=== PATIENT | female | born 1985 | race Caucasian/White ===

== ENCOUNTER 2019-11-02 08:49 | Emergency (ER) | payer OTHER ==
[~2019-11-02] VITALS: Ht 165.1 cm; Wt 86.2 kg
[~2019-11-02 08:49] MED LIST: AMOX500 PO; CEPH500 PO; CETI10 PO; CIPR500 PO; CLIN300 PO; CYCL10 PO; Cleocin HCl300 MG PO; DIAZ10 PO; DIPH50 PO; FAMO20 PO; Flexeril 10 mg10 MG PO; HYDACE10B PO; HYDACE5 PO; HYDACE5325 PO; LAMO25; LORA1 PO; LORA2 PO; METPRE4DP PO; Norco 5-325 Ta1 EACH PO; OXYACE5T PO; PENVK250 PO; PENVK500; PENVK500 PO; PRED20 PO; PROM25 PO; QUET25; RANI150 PO; RXCLIN PO; RXHYDACE PO; RXOXYACE PO; RXPROM25 PO; RXTRAM50 PO; TRAM50 PO; Valium5 MG PO
[2019-11-02] MEDS ORDERED: METH10 PO (09:23)
[2019-11-02] MEDS ORDERED: Cleocin HCl300 MG PO (10:08)
== END 2019-11-02 10:15 | disposition home or self-care (01) ==
LOC: ER 08:49
DX: K02.9 Dental caries, unspecified (principal); Z88.0 Allergy status to penicillin; Z88.6 Allergy status to analgesic agent; Z88.5 Allergy status to narcotic agent; Z88.8 Allergy status to other drugs, medicaments and biological substances; Z91.010 Allergy to peanuts; Z91.018 Allergy to other foods; Z79.899 Other long term (current) drug therapy; F41.9 Anxiety disorder, unspecified; F17.210 Nicotine dependence, cigarettes, uncomplicated
CPT/HCPCS: 99282

== ENCOUNTER 2020-08-24 13:37 | Emergency (ER) | payer OTHER ==
[~2020-08-24] VITALS: Ht 167.6 cm; Wt 83.9 kg
[~2020-08-24 13:37] MED LIST changes: +METH10 PO
[2020-08-24] MEDS ORDERED: Cleocin HCl300 MG PO (14:55)
== END 2020-08-24 15:04 | disposition home or self-care (01) ==
LOC: ER 13:37
DX: K04.7 Periapical abscess without sinus (principal); F17.200 Nicotine dependence, unspecified, uncomplicated; Z88.6 Allergy status to analgesic agent; Z88.5 Allergy status to narcotic agent; Z88.0 Allergy status to penicillin; Z79.891 Long term (current) use of opiate analgesic; Z91.010 Allergy to peanuts; Z91.018 Allergy to other foods; Z87.442 Personal history of urinary calculi
CPT/HCPCS: 99283

== ENCOUNTER 2020-12-16 10:24 | Emergency (ER) | payer OTHER ==
[~2020-12-16] VITALS: Ht 165.1 cm; Wt 81.7 kg
[2020-12-16] MEDS ORDERED: CLIN300 PO (10:36)
== END 2020-12-16 10:40 | disposition home or self-care (01) ==
LOC: ER 10:24
DX: K08.89 Other specified disorders of teeth and supporting structures (principal); F17.200 Nicotine dependence, unspecified, uncomplicated; Z88.6 Allergy status to analgesic agent; Z88.8 Allergy status to other drugs, medicaments and biological substances; Z88.0 Allergy status to penicillin
CPT/HCPCS: 99282

== ENCOUNTER 2021-02-20 06:53 | Emergency (ER) | payer OTHER ==
[~2021-02-20] VITALS: Ht 165.1 cm; Wt 81.7 kg
[2021-02-20] MEDS ORDERED: PRED20 PO (07:23)
[2021-02-20] MEDS ORDERED: CLIN300 PO (07:23)
== END 2021-02-20 07:32 | disposition home or self-care (01) ==
LOC: ER 06:53
DX: K02.9 Dental caries, unspecified (principal); F17.200 Nicotine dependence, unspecified, uncomplicated; Z88.6 Allergy status to analgesic agent; Z88.8 Allergy status to other drugs, medicaments and biological substances; Z91.010 Allergy to peanuts; Z88.5 Allergy status to narcotic agent
CPT/HCPCS: 99282; A9270

== ENCOUNTER 2022-04-04 00:58 | Emergency (ER) | payer OTHER ==
[~2022-04-04] VITALS: Ht 165.1 cm; Wt 88.5 kg
[2022-04-04] MEDS ORDERED: CLIN300 PO (02:12)
== END 2022-04-04 02:20 | disposition home or self-care (01) ==
LOC: ER 00:58
DX: K02.9 Dental caries, unspecified (principal); F41.9 Anxiety disorder, unspecified; F17.200 Nicotine dependence, unspecified, uncomplicated; Z79.52 Long term (current) use of systemic steroids; Z79.891 Long term (current) use of opiate analgesic; Z88.6 Allergy status to analgesic agent; Z88.5 Allergy status to narcotic agent; Z91.010 Allergy to peanuts; Z88.0 Allergy status to penicillin; Z88.8 Allergy status to other drugs, medicaments and biological substances; Z91.018 Allergy to other foods; Z91.09 Other allergy status, other than to drugs and biological substances
CPT/HCPCS: 99282

== ENCOUNTER 2023-10-15 12:47 | Emergency (ER) | payer OTHER ==
[~2023-10-15] VITALS: Ht 165.1 cm; Wt 88.5 kg
[2023-10-15 13:01] VITALS: BP 177/107
[2023-10-15] MEDS ORDERED: PENVK500 PO (13:05)
== END 2023-10-15 13:04 | disposition home or self-care (01) ==
LOC: ER 12:47
DX: K04.7 Periapical abscess without sinus (principal); F17.200 Nicotine dependence, unspecified, uncomplicated; Z88.6 Allergy status to analgesic agent; Z88.8 Allergy status to other drugs, medicaments and biological substances; Z88.5 Allergy status to narcotic agent; Z88.0 Allergy status to penicillin; Z91.018 Allergy to other foods; Z91.010 Allergy to peanuts; Z91.048 Other nonmedicinal substance allergy status; Z79.899 Other long term (current) drug therapy; Z79.52 Long term (current) use of systemic steroids
CPT/HCPCS: 99282

== ENCOUNTER → 2024-05-16 | Outpatient (CLI) | payer OTHER ==
[2024-05-16 15:38] LABS: BASOPHILS ABSOLUTE AUTO 0.05 K/mm3 (0.00-0.23); BASOPHILS PERCENT AUTO 0 % (0-2); EOSINOPHILS PERCENT AUTO 1 % (0-6); Hematocrit 33.2 % (33.0-51.0); Hemoglobin 9.4 g/dL (11.5-16.0); IMMATURE GRAN ABSOLUTE AUTO 0.05 K/mm3 (0.00-0.10); IMMATURE GRAN PERCENT AUTO 0 % (0-1); LYMPHOCYTES ABSOLUTE AUTO 2.61 K/mm3 (0.84-5.20); LYMPHOCYTES PERCENT AUTO 20 % (21-46); MONOCYTES ABSOLUTE AUTO 0.94 K/mm3 (0.16-1.47); MONOCYTES PERCENT AUTO 7 % (4-13); Mean Corpuscular HGB 19.3 pg (26.0-34.0); Mean Corpuscular HGB Conc 28.3 g/dL (31.5-36.5); Mean Corpuscular Volume 68 fL (80-100); Mean Platelet Volume 10.4 fL (9.1-12.4); NEUTROPHILS ABSOLUTE AUTO 9.65 K/mm3 (1.96-9.15); NEUTROPHILS PERCENT AUTO 72 % (41-73); Platelet Count 319 K/mm3 (150-400); RDW Coefficient Variation 19.8 % (11.7-14.2); RDW Standard Deviation 46.4 fL (35.1-46.3); Red Blood Cell Count 4.88 M/mm3 (3.80-5.20)
[2024-05-16 15:50] LABS: Albumin, Blood 3.9 g/dL (3.4-5.0); Albumin/Globulin Ratio 0.9 (0.8-1.8); Bilirubin, Total 0.3 mg/dL (0.1-1.0); Bun/Creatinine Ratio 7.7 (12.0-20.0); Calcium, Blood 9.1 mg/dL (8.5-10.1); Creatinine, Blood 0.91 mg/dL (0.40-1.00); Globulin, Blood 4.5 g/dL (2.2-4.0); Potassium, Blood 3.4 mmol/L (3.5-5.5); Total Protein, Blood 8.4 g/dL (6.4-8.2)
== END ==
LOC: LAB 15:33 → LAB SHORT 15:33
PROVIDERS: Physician Assistant
DX: R07.9 Chest pain, unspecified (principal)
CPT/HCPCS: 80053; 84484; 85025; 85379